=== PATIENT | female | born 1950 | race Caucasian/White ===

== ENCOUNTER → 2016-09-21 | Outpatient (CLI) | payer OTHER ==
[~2016-09-21] MED LIST: ANTIVERT12.5 MG PO; ASPIR 8181 MG PO; CALCIUM 600 +1 EAC1 OR; COLACE100 MG PO; CYCLOBENZAPRINE10 MG PO; DIABETA 2.5MG2.5 MG OR; DIOVAN HCT 80-1 EACH PO; FENOFIBRATE134 MG OR; GLUCOPHAGE XR500 MG OR; LASIX 20 MG TAB20 MG PO; LORTAB 10-3251 EACH PO; METFORMIN HCL500 MG PO; MOBIC15 MG PO; MOBIC7.5 M1 PO; NORCO 5-325 TA1 EACH PO; ONGLYZA5 MG PO; PIOGLITAZONE15 MG; PREMARIN0.3 MG PO; PROTONIX 20 MG20 M1 PO; PROTONIX 20 MG20 MG; RELAFEN500 MG OR; VENTOLIN HFA 1818 GM INH; VICODIN; VITAMIN B-1250 MG OR; VITAMIN D1000 UNI1 OR; VIVELLE-DOT1 EAC1 TD; ZOCOR80 MG OR; ZOFRAN ODT4 MG PO; ZPAK PO
== END ==
LOC: RAD 13:10
DX: M47.26 Other spondylosis with radiculopathy, lumbar region (principal); M43.26 Fusion of spine, lumbar region; M54.9 Dorsalgia, unspecified

== ENCOUNTER → 2017-03-26 | Outpatient (CLI) | payer OTHER | LOC: ULTRA 07:33 | DX: K76.0 Fatty (change of) liver, not elsewhere classified (principal); R39.89 Other symptoms and signs involving the genitourinary system ==

== ENCOUNTER 2020-02-06 20:00 | Emergency (ER) | payer OTHER ==
[~2020-02-06] VITALS: Ht 170.2 cm; Wt 111.1 kg
[~2020-02-06 20:00] MED LIST changes: -ZOCOR80 MG OR; +ZOCOR80 MG PO
[2020-02-06 20:35] LABS: ABSOLUTE NEUTROPHILS 4.3 thou/uL (1.4-8.2); BASOPHILS 0.8 % (0.0-2.0); EOSINOPHILS 1.6 % (0.0-3.0); HEMOGLOBIN 13.6 gm/dL (12.0-15.0); LYMPHOCYTES 30.9 % (24.0-44.0); MCH 28.1 pg (26.0-34.0); MCHC 32.4 g/dL (28.0-37.0); MCV 86.6 fL (80.0-100.0); MONOCYTES 7.5 % (1.0-8.0); PLATELET COUNT 265 thou/uL (150-400); POLYS 59.2 % (36.0-66.0); RBC 4.86 mil/uL (4.20-5.00); RDW 14.6 % (10.5-14.5); WBC 7.3 thou/uL (4.0-11.0)
[2020-02-06 20:40] LABS: ANION GAP 5 mmol/L (7-16); BUN 21 mg/dL (7-18); CALCIUM 8.9 mg/dL (8.5-10.1); CHLORIDE 99 mmol/L (98-107); CO2 32 mmol/L (21-32); CREATININE 1.5 mg/dL (0.6-1.0); GLUCOSE 218 mg/dL (74-106); POTASSIUM 3.7 mmol/L (3.5-5.1); SODIUM 136 mmol/L (136-145)
[2020-02-06 20:43] LABS: ALBUMIN 3.7 g/dL (3.4-5.0); MAGNESIUM 2.1 mg/dL (1.8-2.4); SGOT 24 U/L (15-37); SGPT 28 U/L (30-65); TOTAL BILIRUBIN 0.3 mg/dL (0.2-1.0)
[2020-02-06 20:44] LABS: DIRECT BILIRUBIN < 0.1 mg/dL (<0.1-0.2)
[2020-02-06 20:49] LABS: TROPONIN-I <0.06 ng/mL (<0.06)
[2020-02-06] MEDS ORDERED: DIOVAN 80 MG TA80 M1 PO (21:09)
[2020-02-06] MEDS ORDERED: HYDROCHLOROTHIA25 M2 PO (21:10)
[2020-02-06] MEDS ORDERED: JARDIANCE25 MG PO (21:10)
[2020-02-06] MEDS ORDERED: TRULICITY SUBQ (21:11)
[2020-02-06 22:55] VITALS: BP 135/78
--- NOTE | 2020-02-07 08:21 | EKG ---
[facility] [place] [address] [place] [address] ELECTROCARDIOGRAM REPORT Name: AGUSTINA THACKER Room #: DEP [facility].#: [id number] Admission: 02/06/20 Attend Phys: Discharge: 02/06/20 Date of : 52 Report #: [id number] THIS REPORT FOR: cc: Alonzo Berger MD, Michael L. 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 : 1950 Requested By: Deep Triana Order Number: [id number] MD: Shahid Tellez Measurements Intervals [place]ona Rate: 86 P: 53 NJ: 185 QRS: 18 QRSD: 92 T: 17 QT: 370 QTc: 443 Interpretive Statements Sinus rhythm Probable left atrial enlargement Small inferior Q waves Poor R wave progression Compared to ECG 07/17/2016 11:19:07 No significant change was found Electronically Signed On 02-07-2020 8:20:20 CDT by Shahid Tellez [email or web address] <ELECTRONICALLY SIGNED> By: Shahid Tellez MD, [facility] 02/07/20819 06 06 Shahid Tellez MD, [facility] /EPI
== END 2020-02-06 23:13 | disposition home or self-care (01) ==
LOC: ER 20:00
PROVIDERS: Emergency Medicine
DX: R10.13 Epigastric pain (principal); R42 Dizziness and giddiness; I12.9 Hypertensive chronic kidney disease with stage 1 through stage 4 chronic kidney disease, or unspecified chronic kidney disease; E11.22 Type 2 diabetes mellitus with diabetic chronic kidney disease; N18.9 Chronic kidney disease, unspecified; M19.90 Unspecified osteoarthritis, unspecified site; K21.9 Gastro-esophageal reflux disease without esophagitis; Z90.710 Acquired absence of both cervix and uterus; Z79.899 Other long term (current) drug therapy; Z79.82 Long term (current) use of aspirin; Z88.6 Allergy status to analgesic agent